=== PATIENT | female | born 1980 | race African-American/Black ===

== ENCOUNTER 2018-08-17 08:40 | Emergency (ER) | payer BC ==
[~2018-08-17] VITALS: Ht 160 cm; Wt 157.8 kg
[2018-08-17 11:32] VITALS: BP 117/65
== END 2018-08-17 11:35 | disposition home or self-care (01) ==
LOC: ER 08:40
DX: S92.101A Unspecified fracture of right talus, initial encounter for closed fracture (principal); S60.812A Abrasion of left wrist, initial encounter; F17.210 Nicotine dependence, cigarettes, uncomplicated; V49.09XA Driver injured in collision with other motor vehicles in nontraffic accident, initial encounter; Y93.I9 Activity, other involving external motion; Y92.410 Unspecified street and highway as the place of occurrence of the external cause; Y99.8 Other external cause status